=== PATIENT | male | born 1965 | race Caucasian/White ===

== ENCOUNTER → 2017-12-19 | Outpatient (CLI) | payer MEDICAID ==
[~2017-12-19] MED LIST: ALBU18HF INH; AZEL23SP NS; BACL-19 PO; BENZ-17 PO; DIAZ5TAB4 PO; FLUT9.9S NS; GABA-827 PO; IPRA12.9 INH; IPRA15SP NS; LACT10SO28 PO; LIDO5CRE19 TP; LORA10TA3 PO; METH750T2 PO; MONT10TA9 PO; ONDA4TAB7 PO; OXYB5TAB7 PO; OXYC20TA2 PO; PANT40TA5 PO; PHEN-583 PO; SOFO1TAB PO; [UNRECOGNIZED DRUG - CODE] PO
== END | disposition home or self-care (01) ==
LOC: STAR 15:12
PROVIDERS: ATTEND Urology
DX: Z02.9 Encounter for administrative examinations, unspecified (principal)

== ENCOUNTER 2017-12-24 05:24 | Day surgery (SDC) | payer MEDICAID ==
[~2017-12-24] VITALS: Ht 175.3 cm; Wt 80.0 kg
[2017-12-24 06:00] VITALS: BP 142/82
[2017-12-24] MEDS ORDERED: LACTATED RINGERS 1,000 ML IV SCH (06:02)
[2017-12-24 06:37] LABS: AMPHETAMINE SCREEN, URINE Negative (Negative); BARBITURATE SCREEN, URINE Negative (Negative); BENZODIAZEPINE SCREEN, URINE Positive (Negative); CANNABINOID SCREEN, URINE Positive (Negative); COCAINE SCREEN, URINE Negative (Negative); METHADONE SCREEN, URINE Negative (Negative); OPIATE SCREEN, URINE Positive (Negative)
[2017-12-24] MEDS ORDERED: FENTANYL PF 250 MCG/5ML ONE (07:17)
[2017-12-24] MEDS ORDERED: MIDAZOLAM 1 MG/ML, 2ML ONE (07:17)
[2017-12-24] MEDS ORDERED: CIPROFLOXACIN 400MG/200ML PMX ONE (07:29)
[2017-12-24] MEDS ORDERED: CEFAZOLIN 1,000 MG ONE (07:52)
[2017-12-24] MEDS ORDERED: PROPOFOL 10 MG/ML, 20ML ONE (07:52)
[2017-12-24] MEDS ORDERED: GLYCOPYRROLATE 0.2MG/1ML, 5ML ONE (07:52)
[2017-12-24] MEDS ORDERED: DEXAMETHASONE 4 MG/ML, 1ML ONE (07:52)
[2017-12-24] MEDS ORDERED: ONDANSETRON 2MG/ML, 2ML ONE ×2 (07:52→09:03)
[2017-12-24] MEDS ORDERED: NEOSTIGMINE 1 MG/ML, 10ML ONE (07:52)
[2017-12-24] MEDS ORDERED: SUCCINYLCHOLINE 20 MG/ML, 10ML ONE (07:52)
[2017-12-24] MEDS ORDERED: ROCURONIUM 10MG/ML,5ML ONE (07:52)
[2017-12-24] MEDS ORDERED: ACETAMINOPHEN 325 MG TABLET PO PRN (08:00)
[2017-12-24] MEDS ORDERED: DIAZEPAM 5 MG/ML, 2ML IVPush PRN (08:00)
[2017-12-24] MEDS ORDERED: FENTANYL PF 100 MCG/2ML IV PRN (08:00)
[2017-12-24] MEDS ORDERED: OXYcodone 5 MG/5 ML ORAL.SOL UDC PO PRN (08:00)
[2017-12-24] MEDS ORDERED: HYDROmorphone 1 MG/ML, 1ML IV PRN (08:00)
[2017-12-24] MEDS ORDERED: LORazepam 2 MG/ML, 1ML IVPush PRN (08:00)
[2017-12-24] MEDS ORDERED: ONDANSETRON ODT 8 MG PO PRN (08:00)
[2017-12-24] MEDS ORDERED: ONDANSETRON 2MG/ML, 2ML IV PRN (08:00)
[2017-12-24] MEDS ORDERED: PROCHLORPERAZINE 5 MG/ML, 2ML IM PRN (08:00)
[2017-12-24] MEDS ORDERED: MEPERIDINE/PF 25MG/0.5ML IVPush PRN (08:00)
[2017-12-24] MEDS ORDERED: MORPHINE SULFATE 4 MG/ML, 1ML IVPush PRN (08:00)
[2017-12-24] MEDS ORDERED: NALOXONE 0.4 MG/ML, 1ML ONE ×2 (08:11)
[2017-12-24] MEDS ORDERED: OXYcodone 5 MG/5 ML ORAL.SOL UDC ONE (08:15)
[2017-12-24] MEDS ORDERED: HYDROmorphone 2 MG/ML, 1ML ONE (08:15)
[2017-12-24] MEDS ORDERED: ACETAMINOPHEN 650 MG/20.3 ML UDC ONE (08:15)
[2017-12-24] MEDS ORDERED: PHENAZOPYRIDINE 200 MG TABLET ONE (08:15)
[2017-12-24] MEDS ORDERED: PHENAZOPYRIDINE 200 MG TABLET PO PRN (08:30)
[2017-12-24] MEDS ORDERED: OXYcodone/APAP 5/325MG TABLET PO PRN (08:30)
[2017-12-24] MEDS ORDERED: OPIUM/BELLADONNA SUPP.RECT 16.2-60 MG PR PRN (08:30)
[2017-12-24] MEDS ORDERED: MEPERIDINE/PF 50 MG/ML ONE (08:50)
== END 2017-12-24 10:30 | disposition home or self-care (01) ==
LOC: OUT 05:24
PROVIDERS: ATTEND Urology
DX: C67.9 Malignant neoplasm of bladder, unspecified (principal); N40.1 Benign prostatic hyperplasia with lower urinary tract symptoms; Z87.440 Personal history of urinary (tract) infections; Z72.89 Other problems related to lifestyle; Z87.891 Personal history of nicotine dependence; Z79.899 Other long term (current) drug therapy; Z88.6 Allergy status to analgesic agent; Z88.8 Allergy status to other drugs, medicaments and biological substances
CPT/HCPCS: 52234; 80307; 88307; J0330; J0690; J0744; J1100; J2175; J2250; J2310; J2405; J2704; J2710; J3010; J3490; J7120